=== PATIENT | female | born 1955 | race American Indian/Alaskan Native ===

== ENCOUNTER 2016-07-16 10:04 | Outpatient (CLI) | payer MEDICAID ==
[2016-07-16] MEDS ORDERED: XYLOCAINE TOPICAL 2% TP ONE ×2 (10:09→10:32)
== END 2016-07-16 10:05 | disposition home or self-care (01) ==
LOC: WOUND 10:04
PROVIDERS: ATTEND Internal Medicine
DX: L89.154 Pressure ulcer of sacral region, stage 4 (principal); I10 Essential (primary) hypertension; G35 Multiple sclerosis; E66.01 Morbid (severe) obesity due to excess calories; D50.8 Other iron deficiency anemias
CPT/HCPCS: 11042; 87075; 87116; G0463

== ENCOUNTER 2016-08-06 10:46 | Outpatient (CLI) | payer MEDICAID ==
[2016-08-06] MEDS ORDERED: XYLOCAINE TOPICAL 4% TP ONE ×2 (10:54→16:11)
== END 2016-08-06 10:47 | disposition home or self-care (01) ==
LOC: WOUND 10:46
PROVIDERS: ATTEND Internal Medicine
DX: L89.154 Pressure ulcer of sacral region, stage 4 (principal); E66.01 Morbid (severe) obesity due to excess calories; I10 Essential (primary) hypertension; G35 Multiple sclerosis; D50.8 Other iron deficiency anemias; F41.9 Anxiety disorder, unspecified

== ENCOUNTER 2021-10-23 04:40 | Emergency (ER) | payer MEDICARE ==
[2021-10-23] MEDS ORDERED: SODIUM CHLORIDE 0.9% 500 ML 500 ML IV ONE (07:17)
--- NOTE | 2021-10-23 08:12 | XRay Report ---
CHEST 1 VIEW INDICATION: GI Bleed. COMPARISON: 07/21/2019 FINDINGS: Support devices: Right IJ Ikhyjh-r-Ichz remains in adequate position terminating in the lower SVC Heart: Mild cardiomegaly has developed since the previous exam. Lungs/Pleura: Mild pulmonary venous congestion has developed since the previous exam. No obvious pneu monia, pleural effusion or pneumothorax. Additional findings: None. IMPRESSION: Mild cardiomegaly and central pulmonary venous congestion but no CHF. Signer Name: Ray Hartley Jr, MD Signed: 10/23/2021 8:08 AM Workstation Name: [id number]
[2021-10-23 09:31] LABS: Basophils # (Auto) 0.1 K/mm3 (0.0-0.1); Basophils % (Auto) 0.4 % (0.0-1.8); Eosinophils # (Auto) 1.8 K/mm3 (0.0-0.4); Eosinophils % (Auto) 9.5 % (0.0-4.3); Hematocrit 36.1 % (30.3-42.9); Hemoglobin 12.1 gm/dl (10.1-14.3); Lymphocytes # (Auto) 2.2 K/mm3 (1.2-5.4); Lymphocytes % (Auto) 11.8 % (13.4-35.0); Mean Corpuscular HGB Conc 34 % (30-34); Mean Corpuscular Volume 86 fl (79-97); Monocytes # (Auto) 0.9 K/mm3 (0.0-0.8); Monocytes % (Auto) 4.8 % (0.0-7.3); Platelet Count 225 K/mm3 (140-440); Red Blood Count 4.22 M/mm3 (3.65-5.03); Red Cell Distribution Width 14.9 % (13.2-15.2)
[2021-10-23 09:51] LABS: Alanine Aminotransferase 29 units/L (7-56); Albumin 4.3 g/dL (3.9-5); Blood Urea Nitrogen 19 mg/dL (7-17); Calcium 9.1 mg/dL (8.4-10.2); Hemolysis Index 5
[2021-10-23 09:52] LABS: BUN/Creatinine Ratio 32
[2021-10-23 12:49] LABS: Bacteria,Urine 2+ /HPF (Negative); Bilirubin,Urine NEG (Negative); Blood,Urine SM (Negative); Color,Urine Yellow (Yellow); Mucus,Urine FEW /HPF; Urobilinogen,Urine < 2.0 mg/dL (<2.0)
[2021-10-23 12:57] LABS: WBC,Urine > 182.0 /HPF (0.0-6.0)
[2021-10-23] MEDS ORDERED: cefTRIAXone/NS 1 GM/50 ML 1 GM/50 ML BAG IV ONE (13:05)
--- NOTE | 2021-10-23 13:47 | Emergency Department Report ---
ED General Adult HPI - General Chief complaint: GI Bleed Stated complaint: AMS Time Seen by Provider: 10/23/21 07:16 Source: EMS Mode of arrival: Stretcher Limitations: No Limitations, Altered Mental Status, Physical Limitation - History of Present Illness Initial comments: From assisted living. Per staff, pt vomited bloody secetions today. (Non-verbal, contracted Port-a-cath right upper chest. [place] cath draining clear urine.) pt is on abx at assisted living , was brought in for evaluation of blood at the mouth , no history, vss , had slight low grade fever -: hour(s) Location: mouth Associated Symptoms: denies: denies other symptoms, confusion, chest pain, cough, diaphoresis - Related Data Home Medications Medication Instructions Recorded Confirmed Last Taken Baclofen 20 mg PO 5XD 06/23/14 07/23/19 Unknown Ferrous Sulfate 325 mg PO DAILY 06/23/14 07/23/19 Unknown Quetiapine Fumarate [SEROquel] 50 mg PO BID 07/23/19 07/23/19 Unknown Solifenacin Succinate [Vesicare] 10 mg PO DAILY 07/23/19 07/23/19 Unknown Previous Rx's Medication Instructions Recorded Last Taken Type HYDROcodone/APAP 5-325 [Barry 1 - 2 each PO Q4-6H PRN #15 tablet 10/22/13 Unknown Rx 5-325 mg TAB] Amoxicillin/Potassium Clav 1 each PO BID #7 tablet 07/25/19 Unknown Rx [Augmentin 875-125 Tablet] Allergies Allergy/AdvReac Type Severity Reaction Status Date / Time shrimp Allergy Anaphylaxis Uncoded 08/25/13 10:05 ED Review of Systems ROS: Stated complaint: AMS Other details as noted in HPI Comment: Unobtainable due to pts medical conditions ED Past Medical Hx - Past Medical History Previous Medical History?: Yes Hx Congestive Heart Failure: No Hx Diabetes: No Hx Arthritis: Yes Additional medical history: MS - Surgical History Past Surgical History?: Yes Additional Surgical History: , hysterectomy - Social History Smoking Status: Unknown if ever smoked Substance Use Type: None - Medications Home Medications: Home Medications Medication Instructions Recorded Confirmed Last Taken Type HYDROcodone/APAP 5-325 [Barry 1 - 2 each PO Q4-6H PRN #15 tablet 10/22/13 07/23/19 Unknown Rx 5-325 mg TAB] Baclofen 20 mg PO 5XD 06/23/14 07/23/19 Unknown History Ferrous Sulfate 325 mg PO DAILY 06/23/14 07/23/19 Unknown History Quetiapine Fumarate [SEROquel] 50 mg PO BID 07/23/19 07/23/19 Unknown History Solifenacin Succinate [Vesicare] 10 mg PO DAILY 07/23/19 07/23/19 Unknown History Amoxicillin/Potassium Clav 1 each PO BID #7 tablet 07/25/19 Unknown Rx [Augmentin 875-125 Tablet] ED Physical Exam - General Limitations: Physical Limitation General appearance: lethargic - Head Head exam: Present: atraumatic, normocephalic - Eye Eye exam: Present: normal appearance - ENT ENT exam: Present: other (lip contusions ) - Neck Neck exam: Present: normal inspection - Respiratory Respiratory exam: Present: normal lung sounds bilaterally. Absent: respiratory distress - Cardiovascular Cardiovascular Exam: Present: regular rate, normal rhythm. Absent: systolic murmur, diastolic murmur, rubs, gallop - GI/Abdominal GI/Abdominal exam: Present: soft, normal bowel sounds - Extremities Exam Extremities exam: Present: normal inspection - Back Exam Back exam: Present: normal inspection - Neurological Exam Neurological exam: Present: alert, oriented X3 - Psychiatric Psychiatric exam: Present: normal affect, normal mood - Skin Skin exam: Present: warm, dry, intact, normal color. Absent: rash ED Course Vital Signs 10/23/21 10/23/21 10/23/21 05:30 08:17 08:30 Temperature 100.2 F H Pulse Rate 95 H 84 Respiratory 18 19 17 Rate Blood Pressure 152/78 O2 Sat by Pulse 100 100 100 Oximetry 10/23/21 10/23/21 10/23/21 08:46 09:00 09:16 Temperature Pulse Rate 93 H 86 91 H Respiratory 15 16 16 Rate Blood Pressure 173/92 O2 Sat by Pulse 100 100 100 Oximetry 10/23/21 10/23/21 10/23/21 09:30 09:46 10:00 Temperature Pulse Rate 97 H 93 H 108 H Respiratory 18 19 15 Rate Blood Pressure 167/89 167/89 162/80 O2 Sat by Pulse 100 100 100 Oximetry 10/23/21 10/23/21 10/23/21 10:16 10:30 10:46 Temperature Pulse Rate 100 H 97 H 93 H Respiratory 18 20 18 Rate Blood Pressure 162/80 161/82 161/82 O2 Sat by Pulse 100 100 100 Oximetry 10/23/21 10/23/21 11:00 11:16 Temperature Pulse Rate 106 H Respiratory 19 Rate Blood Pressure 156/82 O2 Sat by Pulse 100 97 Oximetry ED Medical Decision Making - Lab Data Result diagrams: 10/23/21 09:19 10/23/21 07:17 - EKG Data -: EKG Interpreted by Me EKG shows normal: sinus rhythm Rate: normal - EKG Data Interpretation: no acute changes - Radiology Data Radiology results: report reviewed, image reviewed - Medical Decision Making work up showed elevated wbc , already on abx lactic negative no tachycardia, no signs of severe sepsis vss, x ray clear UA showed UTI abx given fever control, no evidence of GI bleed, seems from lip lac Critical care attestation.: If time is entered above; I have spent that time in minutes in the direct care of this critically ill patient, excluding procedure time. ED Disposition Clinical Impression: Mouth bleeding, Lip laceration, Fever, UTI (urinary tract infection) Disposition: 01 HOME / SELF CARE / HOMELESS Is pt being admited?: No Does the pt Need Aspirin: No Condition: Stable Instructions: Fever, Adult, [id number], Urinary Tract Infection, Adult Referrals: PRIMARY CARE, [Primary Care Provider] - 3-5 Days Forms: Accompanied Note
[2021-10-23 20:59] VITALS: BP 130/77
== END 2021-10-23 20:58 | disposition home or self-care (01) ==
LOC: ED 04:40
DX: S01.511A Laceration without foreign body of lip, initial encounter (principal); R50.9 Fever, unspecified; N39.0 Urinary tract infection, site not specified; M19.90 Unspecified osteoarthritis, unspecified site; Z79.899 Other long term (current) drug therapy; Z91.013 Allergy to seafood; X58.XXXA Exposure to other specified factors, initial encounter; Y93.89 Activity, other specified; Y92.89 Other specified places as the place of occurrence of the external cause; Y99.8 Other external cause status
CPT/HCPCS: 36415; 71045; 80053; 81001; 82140; 82271; 82962; 83690; 85025; 85610; 93005; 96365; 99284; J0696; J7040